=== PATIENT | male | born 1990 | race Caucasian/White ===

== ENCOUNTER 2019-02-01 11:50 | Emergency (ER) | payer MEDICAID ==
[~2019-02-01] VITALS: Ht 172.7 cm; Wt 68.0 kg
[2019-02-01 12:29] VITALS: BP 160/79
--- NOTE | 2019-02-01 12:47 | ER.PDOC ---
General Chief Complaint: Cough/Congestion Stated Complaint: SORE THROAT, COGESTION Time seen by MD: 12:44 Source: patient Exam Limitations: no limitations History of Present Illness Timing/Duration: gradual, last week Severity: mild Associated Symptoms: runny nose, sinus pain/drainage, hoarseness, cough, mild SOB All Other Systems: Reviewed and Negative Past Medical History Medical History: no pertinent history Social History Smoking: less than 1 pack/day Alcohol Use: occassionally Drug Use: marijuana Physical Exam General Appearance: alert, no distress Eye: eyes nml inspection, lids & conjunct. nml, PERRL, no nystagmus Nose: nose nml Throat: pharynx nml, airway nml Neck: nml inspection, supple Respiratory: no resp.distress, breath sounds nml Abdomen: non-tender, no organomegaly CVS: reg rate & rhythm, heart sounds nml Skin: color nml, no rash, warm/dry Extremities: non-tender, nml ROM, no pedal edema NEURO/PSYCH: oriented x 3, CN's nml as tested, motor nml, sensation nml, mood/affect nml Results/Orders Results/Orders Orders - DEVAUGHN CHATMAN MD Triamcinolone Acetonide ([id number]) (02/01/19 13:00) Vital Signs Date Time Temp Pulse Resp B/P (MAP) Pulse Ox O2 Delivery O2 Flow Rate FiO2 02/01/19 12:29 98.3 57 18 96 Room Air 02/01/19 12:29 98.3 57 18 02/01/19 12:29 98.3 57 18 160/79 (106) Room Air Departure Time of Disposition: 13:00 Disposition: 01 HOME, SELF-CARE Impression: Primary Impression: Acute respiratory infection Condition: Stable Referrals: PCP,UNKNOWN (PCP) PRIMARY CARE PROVIDER Duration or Time Spent with Pa: 10 min DEVAUGHN CHATMAN MD Feb 01, 2019 12:47
[2019-02-01] MEDS ORDERED: KENALOG-40 ONE (12:56)
[2019-02-01] MEDS: KENALOG-40 IM ONE (12:58)
--- NOTE | 2019-02-01 14:00 | NUR ---
RX PATIENT PRESENTS TO PBX AGGITATED ASKING WHY HE WAS GIVEN ZITHROMYCIN WHEN HE REQUESTED PCN. PATIENT HAD BEEN TO [facility] AND LEFT RX THERE. PATIENTS CHART REVIEWED AND SPOKE WITH DR CHATMAN, RX CHANGED TO AMOXIL 500MG TID FOR 10DAYS. EXPLAINED TO PATIENT REASON FOR ZPACK, BUT THAT PHYSICIAN CHANGED RX. NEW RX GIVEN TO PATIENT AFTER ATTEMPT TO CALL RX INTO [facility] BUT REMAINED ON HOLD FOR EXTENDED TIME. PATIENT ALSO QUESTIONING WHY WAS GIVEN AN INJECTION. EXPLAINED TO PATIENT THAT HE RECIEVED A STEROID INJECTION TO HELP WITH HIS UPPER RESPIRATORY SYMPTOMS.
--- NOTE | 2019-02-01 14:25 | NUR ---
[facility] CALLED STATING PATIENT UPSET THAT WAS GIVEN AMOXIL AND WANTED PCN. PER PHARMACY THEY TRIED TO EXPLAIN THAT AMOXIL WAS PCN AND PATIENT BECAME UNRULEY AND HAD TO BE ASKED TO LEAVE STORE. PATIENT TOOK RX WITH HIM.
--- NOTE | 2019-02-01 15:25 | NUR ---
RX PATIENT RETURNS TO PBX REQUESTING RX TO BE CHANGED FROM AMOXIL TO PLAIN PCN. EXPLAINED TO PATIENT THAT AMOXIL IS PCN, PATIENT ARGUING WITH NURSE THAT AMOXIL IS NOT PCN, PATIENT UPSET STATING HE DOESN'T UNDERSTAND WHY WE WON'T WRITE FOR PLAIN PCN. EXPLAINED TO PATIENT THAT THE [facility] WILL NOT CHANGE RX AGAIN. PATIENT REQUESTED COPIES OF HIS VISIT TODATY. PATIENT SENT TO [facility] TO GET A COPY OF RECORDS.
== END 2019-02-01 13:03 | disposition home or self-care (01) ==
LOC: ER 11:50
DX: J02.9 Acute pharyngitis, unspecified (principal); F17.210 Nicotine dependence, cigarettes, uncomplicated; F12.10 Cannabis abuse, uncomplicated
CPT/HCPCS: 96372; 99283; J3301